=== PATIENT | female | born 1975 | race Caucasian/White ===

== ENCOUNTER → 2020-10-03 | Outpatient (CLI) | payer BC ==
--- NOTE | 2020-10-03 15:39 | RAD ---
Pelvic ultrasound INDICATION: Pelvic pain TECHNIQUE: Transabdominal and endovaginal ultrasound of the pelvis was performed FINDINGS: The uterus measures 8.9 x 5.4 x 3.5 cm. At the dome of the uterine fundus is a 7 mm oval mass in the myometrium with surrounding subtle incre ased echogenicity. The endometrium measures 5 mm. The right ovary measures 3.9 x 2.5 x 1.9 cm. Multiple right ovarian follicles are identified. The largest in the right ovary measures 1.5 x 1.2 x 1.1 cm. Normal blood flow to the right ovary. The left ovary measures 2.5 x 2.1 x 1.8 cm. It demonstrates normal blood flow. The lower cervical canal contains multiple cysts with intervening septations of varying thickness. IMPRESSION: 1. Normal ovaries with no evidence of torsion. 2. There is a 7 mm oval hypoechoic mass in the uterine fundus with apparent perilesional increased ec hogenicity of uncertain significance. Complex cyst, abscess and degenerating fibroid are differential considerations. MRI pelvis with and without IV contrast could be considered in further evaluation if clinically appropriate. Otherwise, no pelvic or adnexal masses identified. 4. Numerous cysts in the lower endocervical canal, potentially reflecting nabothian cysts but recomme nd correlation with the patient's physical exam and clinical history. Electronically signed by: Tico Garcia MD (10/03/2020 3:36 PM) [id number]
== END ==
LOC: US 10:46
PROVIDERS: ATTEND Obstetrics & Gynecology
DX: N94.89 Other specified conditions associated with female genital organs and menstrual cycle (principal); N85.9 Noninflammatory disorder of uterus, unspecified
CPT/HCPCS: 76830; 76856